=== PATIENT | female | born 1985 | race Caucasian/White ===

== ENCOUNTER 2017-11-03 09:35 | Emergency (ER) | payer SELFPAY ==
[~2017-11-03] VITALS: Ht 165.1 cm; Wt 95.0 kg
[2017-11-03 09:44] VITALS: BP 123/71; PULSE 95; RESP 16; TEMP 98.4; O2SAT 98
--- NOTE | 2017-11-03 09:50 | PD ---
HPI Chief Complaint: Pain: Acute or Chronic Time Seen by Provider: 09:50 Travel History International Travel<30 days: No Contact w/Intl Traveler<30days: No Traveled to known affect area: No History of Present Illness HPI 31-year-old female came to the emergency room with history of neck pain that has been going on for past 1 week. She points to the left side of her neck. Says pain is significant when she tries to turn her head to the left side or move her left arm. She has never had this kind of pain before. She spoke with her sister who thought that she could have a pinched nerve. Patient has been taking Tylenol at home since she does not have anything stronger to take. She usually is healthy and does not go to any doctors. 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 She has been having hard time working because of this. Patient appeared to be anxious and tearful when describing her situation. Vital signs are stable. No history of fever or chills. [facility] Past Medical History Narrative Medical List of her past medical, surgical, social and family history is reviewed from the nursing note. ?: Not Social History Tobacco Use: No Allergies-Medications (Allergen,Severity, Reaction): Coded Allergies: Penicillins (Verified Allergy, Unknown, 11/03/17) Comments List of her allergies reviewed from the nursing note Reported Meds & Prescriptions Reported Meds & Active Scripts Active Flexeril (Cyclobenzaprine HCl) 5 Mg Tab 5 Mg PO TID Ibuprofen 600 Mg Tab 600 Mg PO Q6H PRN Narrative Medication List of her home medications reviewed from the nursing note Review of Systems Except as stated in HPI: all other systems reviewed are Neg Musculoskeletal: Positive: Pain Physical Exam Narrative GENERAL: Awake, alert, moderate distress, obese SKIN: Focused skin assessment warm/dry. HEAD: Atraumatic. Normocephalic. EYES: Pupils equal and round. No scleral icterus. No injection or drainage. ENT: No nasal bleeding or discharge. Mucous membranes pink and moist. NECK: Trachea midline. No JVD. Paraspinal muscle spasm at the cervical region. Decreased range of motion of the cervical spine. CARDIOVASCULAR: Regular rate and rhythm. No murmur appreciated. RESPIRATORY: No accessory muscle use. Clear to auscultation. Breath sounds equal bilaterally. GASTROINTESTINAL: Abdomen soft, non-tender, nondistended. Hepatic and splenic margins not palpable. MUSCULOSKELETAL: No obvious deformities. No clubbing. No cyanosis. No edema. Congenital agenesis of right upper extremity NEUROLOGICAL: Awake and alert. No obvious cranial nerve deficits. Motor grossly within normal limits. Normal speech. PSYCHIATRIC: Appropriate mood and affect; insight and judgment normal. Data Data Last Documented VS Orders Orders Ct Cerv Spine W/O Contrast (11/03/17 ) Ketorolac Inj (Toradol Inj) (11/03/17 10:15) Morphine Inj (Morphine Inj) (11/03/17 10:15) Orphenadrine Inj (Norflex Inj) (11/03/17 10:15) Ed Discharge Order (11/03/17 12:24) [facility] Medical Decision Making Medical Screen Exam Complete: Yes Emergency Medical Condition: Yes Medical Record Reviewed: Yes Interpretation(s) Last 72 [address] Impressions [address] 11/03/17 0000 Signed Impressions: Service Date/Time: Friday, November 03, 2017 10:31 - CONCLUSION: 1. No definite acute abnormalities seen. 2. Well-corticated bony density seen inferior to the left lamina of C2. This appears chronic. It may be the sequela for prior injury. Acute fracture in this region is not seen. 3. Moderate left disc protrusion at the C5-C6 level. Salbador Velasco MD Differential Diagnosis Cervical radiculopathy, torticollis Narrative Course 11:08 AM awaiting for the CT scan of the cervical spine to be done and resulted. I have ordered for medications for pain relief and muscle relaxation. I will reassess her in a bit. Procedures EKG Prior to Arrival: No Diagnosis Primary Impression: Neck pain Additional Impression: Cervical radiculopathy Referrals: Primary Care Physician Additional Instructions: Return to the ER if the condition worsens or any other new concerns. Take the medication as per the prescription direction. Follow-up with your primary care if symptoms do not improve. You might require an MRI as an outpatient by her primary care. Med/Other Pt SpecificInfo: Prescription(s) given Scripts Cyclobenzaprine (Flexeril) 5 Mg Tab 5 MG PO TID for Muscle Spasm, #15 TAB 0 Refills Prov: Deepa Rosado MD 11/03/17 Ibuprofen (Ibuprofen) 600 Mg Tab 600 MG PO Q6H Y for Pain/Inflammation, #40 TAB 0 Refills Prov: Deepa Rosado MD 11/03/17 Disposition: 01 DISCHARGE HOME Condition: Stable Deepa Rosado MD Nov 03, 2017 09:50
[2017-11-03] MEDS ORDERED: ORPHENADRINE INJ 60 MG/2 ML AMP IM ONE (10:15)
[2017-11-03] MEDS ORDERED: KETOROLAC TROMETHAMINE 60 MG/2 ML (IM) VIAL IM ONE (10:15)
[2017-11-03] MEDS ORDERED: MORPHINE SULFATE 8 MG/ML INJ IM ONE (10:15)
[2017-11-03] MEDS ORDERED: CYCL5TAB PO (11:37)
[2017-11-03] MEDS ORDERED: IBUP-232 PO (11:37)
--- NOTE | 2017-11-03 12:14 | RADRPT ---
EXAM DATE/TIME: 11/03/2017 10:31 [place] COMPARISON: No previous studies available for comparison. INDICATIONS : Right upper extremity pain for one week. RADIATION DOSE: 18.00 CTDIvol (mGy) MEDICAL HISTORY : None SURGICAL HISTORY : None. ENCOUNTER: Initial ACUITY: 1 week PAIN SCALE: 8/10 LOCATION: Right upper extremity TECHNIQUE: Volumetric scanning of the cervical spine was performed. Multiplanar reconstructions in the sagittal, coronal and oblique axial planes were performed. Using automated exposure control and adjustment o f the mA and/or kV according to patient size, radiation dose was kept as low as reasonably achievable to obtain optimal diagnostic quality images. DICOM format image data is available electronically f or review and comparison. FINDINGS: VERTEBRAE: Normal vertebral body height. There is a 0.9 x 0.4 cm well-corticated bony density seen inferior to t he left lamina of C2. This appears chronic. This could be the sequela of prior injury. ALIGNMENT: No evidence of subluxation. C2-C3: The bony spinal canal is normal in size. No evidence of disc bulge or herniation. The neural forami na are bilaterally patent. C3-C4: The bony spinal canal is normal in size. No evidence of disc bulge or herniation. The neural forami na are bilaterally patent. C4-C5: The bony spinal canal is normal in size. No evidence of disc bulge or herniation. The neural forami na are bilaterally patent. C5-C6: The disc demonstrates mild loss of height. 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 The neural for alexandro are patent. C6-C7: The bony spinal canal is normal in size. No evidence of disc bulge or herniation. The neural forami na are bilaterally patent. C7-T1: The bony spinal canal is normal in size. No evidence of disc bulge or herniation. The neural forami na are bilaterally patent. CONCLUSION: 1. No definite acute abnormalities seen. 2. Well-corticated bony density seen inferior to the left lamina of C2. This appears chronic. It may be the sequela for prior injury. Acute fracture in this region is not seen. 3. Moderate left disc protrusion at the C5-C6 level. Salbador Velasco MD on November 03, 2017 at 12:08 Board Certified Radiologist. This report was verified electronically.
== END 2017-11-03 13:05 | disposition home or self-care (01) ==
LOC: NEPD 09:35
DX: M50.122 Cervical disc disorder at C5-C6 level with radiculopathy (principal)
CPT/HCPCS: 72125; 96372; 99283; J1885; J2270; J2360